=== PATIENT | female | born 1930 | race Caucasian/White ===

== ENCOUNTER 2016-06-07 17:30 | Observation (INO) | payer OTHER ==
--- NOTE | 2016-06-07 17:34 | PDOC ---
History of Present Illness - General History Source: Patient, Family (Daughter, Son ), Old Records Exam Limitations: No Limitations - History of Present Illness Initial Comments: 06/07/16 17:53 The patient is an 85 year old female, with a significant past medical history of hypertension, diabetes, s/p CO (2001) and coronary artery disease s/p CABG ( 2008)/stents, who presents to the emergency department with nonradiating midsternal chest discomfort since approximately 4:30PM this afternoon. The patient describes the chest discomfort as a pressure. The patient reports that she went for a walk outside this afternoon, came inside, sat down and the chest discomfort suddenly started. The patient additionally reports nausea and one episode of nonbloody nonbilious vomiting this afternoon. The patient reports taking two sublingual Nitroglycerins, with some relief. The patient denies shortness of breath. The patient denies fever, chills, headache, cough, diarrhea , abdominal pain, dysuria or any recent illnesses.The patients daughter and son are at the bedside. Allergies: Acetaminophen, Cyclobenzaprine, Midazolam HCl, Penicillins, Statins- Hmg-Coa Reductase Inhibitor, Tramadol HCl. Past Surgical History: Cholecystectomy; CABG; Stents. Social History: Non smoker. Denies alcohol or drug use. PCP: Dr. Arauz Psychologist Clinical: Dr. Metzger <Luba Mueller - Last Filed: 06/07/16 18:22> - General History Source: Patient, Family, Old Records Exam Limitations: No Limitations <Kalli Flores - Last Filed: 06/07/16 19:00> - General Chief Complaint: Chest Pain Stated Complaint: CHEST PAIN/ PRESSURE Time Seen by Provider: 06/07/16 17:33 Past History <Luba Mueller - Last Filed: 06/07/16 18:22> - Past Medical History Cardiac Disorders: Yes (CO,STENTS,CABG,) Diabetes: Yes - Surgical History Cardiac Surgery: Yes (CABG,STENTS) - Psycho/Social/Smoking Cessation Hx Anxiety: No Suicidal Ideation: No Smoking Status: No Smoking History: Never smoked Have you smoked in the past 12 months: No Number of Cigarettes Smoked Daily: 0 Hx Alcohol Use: No Substance Use Type: None Hx Substance Use Treatment: No <Kalli Flores - Last Filed: 06/07/16 19:00> - Past Medical History Allergies/Adverse Reactions: Allergies Allergy/AdvReac Type Severity Reaction Status Date / Time cyclobenzaprine Allergy Unknown Verified 06/07/16 17:33 [Cyclobenzaprine] midazolam HCl [From Versed] Allergy Unknown Verified 06/07/16 17:33 Penicillins Allergy Unknown Verified 06/07/16 17:33 Dclsiwy-Rvy-Vzy Reductase Allergy Unknown Verified 06/07/16 17:33 Inhibitor tramadol HCl [From Ultracet] Allergy Unknown Verified 06/07/16 17:33 Home Medications: Ambulatory Orders Aspirin [ASA -] 81 mg PO DAILY 06/07/16 Clopidogrel Bisulfate [Plavix -] 75 mg PO DAILY 06/07/16 Ezetimibe [Zetia] 10 mg PO DAILY 06/07/16 Isosorbide Mononitrate [Isosorbide Mononitrate ER] 60 mg PO DAILY 06/07/16 Metoprolol Tartrate 100 mg PO BID 06/07/16 Nitroglycerin Sublingual [Nitrostat -] 0.4 mg SL PRN 06/07/16 Wallace-3 Fatty Acids [Fish Oil] 1,000 mg PO DAILY 06/07/16 Pioglitazone HCl [Actos] 45 mg PO DAILY 06/07/16 Review of Systems - Review of Systems Able to Perform ROS?: Yes Comments:: 06/07/16 17:49 GENERAL/CONSTITUTIONAL: No fever or chills. No weakness. HEAD, EYES, EARS, NOSE AND THROAT: No change in vision. No ear pain or discharge. No sore throat. CARDIOVASCULAR: +Chest discomfort. No shortness of breath. RESPIRATORY: No cough, wheezing, or hemoptysis. GASTROINTESTINAL: +Nausea, vomiting. No diarrhea or constipation. GENITOURINARY: No dysuria, frequency, or change in urination. MUSCULOSKELETAL: No joint or muscle swelling or pain. No neck or back pain. SKIN: No rash. NEUROLOGIC: No headache, vertigo, loss of consciousness, or change in strength/ sensation. ENDOCRINE: No increased thirst. No abnormal weight change. HEMATOLOGIC/LYMPHATIC: No anemia, easy bleeding, or history of blood clots. ALLERGIC/IMMUNOLOGIC: No hives or skin allergy. <Luba Mueller - Last Filed: 06/07/16 18:22> *Physical Exam - Physical Exam Comments: 06/07/16 18:00 GENERAL: Awake, alert, and fully oriented, in no acute distress. HEAD: No signs of trauma. EYES: PERRLA, EOMI, sclera anicteric, conjunctiva clear. ENT: Auricles normal inspection, hearing grossly normal, nares patent, oropharynx clear without exudates. Moist mucosa. NECK: Normal ROM, supple, no lymphadenopathy, JVD, or masses. LUNGS: Breath sounds equal, clear to auscultation bilaterally. No wheezes, and no crackles. HEART: Regular rate and rhythm, normal S1 and S2, no murmurs, rubs or gallops. ABDOMEN: Soft, nontender, normoactive bowel sounds. No guarding, no rebound. No masses. EXTREMITIES: Normal range of motion, no edema. No clubbing or cyanosis. No cords, erythema, or tenderness. NEUROLOGICAL: Cranial nerves II through XII intact. Normal speech, normal gait. SKIN: Warm, dry, normal turgor, no rashes or lesions noted. <Luba Mueller - Last Filed: 06/07/16 18:22> ED Treatment Course - LABORATORY CBC & Chemistry Diagram: 06/07/16 17:40 06/07/16 17:40 <Luba Mueller - Last Filed: 06/07/16 18:22> - LABORATORY CBC & Chemistry Diagram: 06/07/16 17:40 06/07/16 17:40 <Kalli Flores - Last Filed: 06/07/16 19:00> Medical Decision Making - Medical Decision Making 06/07/16 18:22 Call placed to patient's PMD, Dr. Arauz - , at 18:21. Connected and case discussed. <Luba Mueller - Last Filed: 06/07/16 18:22> - Medical Decision Making 06/07/16 17:57 85-year-old female with history of hypertension, coronary artery disease, CO, CABG presents the Emergency Department with complaints of chest discomfort associated with nausea and vomiting times one today. Differential diagnosis includes but is not limited to: ACS, pneumonia, pancreatitis, gastritis, electrolyte abnormality, toxic/metabolic derangement. Plan: 1. EKGshows normal sinus rhythm at 70 bpm with an incomplete right bundle branch block and one PVC. These findings are unchanged from prior EKG in 2012 noted in the EMR. 2. Labs 3. Chest x-ray 4. Observe and reevaluate 5. The patient will likely require admission to observation for serial cardiac markers and stress test given her heart score. 06/07/16 18:34 Addendum: The labs were reviewed and are noted in the EMR. The plan is to admit to obs as above. CXR is negative for acute pulmonary disease. I have discussed the case with Dr. Arauz, her primary care physician. <Kalli Flores - Last Filed: 06/07/16 19:00> *DC/Admit/Observation/Transfer - Attestations Scribe Attestion: 06/07/16 17:38 Documentation prepared by Luba Mueller, acting as medical record administrator for Kalli Flores MD. <Luba Mueller - Last Filed: 06/07/16 18:22> - Discharge Dispostion Admit: Yes - Attestations Physician Attestion: 06/07/16 18:00 I, Dr. Kalli Flores, attest that the scribes documentation that appears above has been prepared under my direction and personally reviewed by me in its entirety. I confirmed that the note above accurately reflects all work, treatment, procedures, and medical decision-making performed by me. <Kalli Flores - Last Filed: 06/07/16 19:00> Diagnosis at time of Disposition: Chest pain - Discharge Dispostion Condition at time of disposition: Stable - Referrals Referrals: Guillermo Arauz MD [Primary Care Provider] -
[2016-06-07 18:06] LABS: BASOPHIL 3.3 % (0-2.0); EOSINOPHIL 0.9 % (0-4.5); MCHC 32.6 g/dl (32.0-36.0); MEAN CELL VOLUME 85.9 fl (80-96); MEAN PLT VOLUME 9.2 fl (7.5-11.1); NEUTROPHILS 71.7 % (42.8-82.8); PLATELET COUNT 193 K/MM3 (134-434); RDW 13.9 % (11.6-15.6); WHITE BLOOD COUNT 12.3 K/mm3 (4.0-10.0)
[2016-06-07 18:09] LABS: ALBUMIN 4.3 g/dl (3.5-5.0); BILIRUBIN,TOTAL 0.5 mg/dl (0.2-1.0); CALCIUM 8.9 mg/dl (8.4-10.2); CPK(DFH) 72 IU/L (26-140); CREATININE 1.7 mg/dl (0.6-1.3); PHOSPHOROUS 3.8 mg/dl (2.5-4.6); TOT PROT 7.7 g/dl (6.4-8.3)
[2016-06-07 18:41] LABS: TROPONIN I (DFP) < 0.03 ng/ml (0.03-0.50)
[2016-06-07] MEDS ORDERED: ONDANSETRON 4 MG/2 ML VIAL IVPUSH ONE (18:47)
[2016-06-07] MEDS ORDERED: ONDANSETRON 4 MG/2 ML VIAL ONE (18:48)
--- NOTE | 2016-06-07 19:13 | PDOC ---
*Physical Exam - Vital Signs Last Vital Signs Temp Pulse Resp BP Pulse Ox 98.1 F 65 16 152/77 99 06/07/16 17:32 06/07/16 18:58 06/07/16 18:58 06/07/16 18:58 06/07/16 18:58 ED Treatment Course - LABORATORY CBC & Chemistry Diagram: 06/07/16 17:40 06/07/16 17:40 - ADDITIONAL ORDERS Additional order review: Laboratory Results 06/07/16 06/07/16 17:40 17:40 Sodium 135 L Potassium 4.5 Chloride 101 Carbon Dioxide 26 Anion Gap 8 BUN 28 H Creatinine 1.7 H D Creat Clearance w eGFR 28.50 Random Glucose 130 H D Calcium 8.9 Phosphorus 3.8 Magnesium 2.0 Total Bilirubin 0.5 D AST 31 ALT 13 Alkaline Phosphatase 63 Creatine Kinase 72 Troponin I < 0.03 L Total Protein 7.7 Albumin 4.3 Lipase 40 06/07/16 17:40 RBC 4.89 MCV 85.9 MCHC 32.6 RDW 13.9 MPV 9.2 Neutrophils % 71.7 Lymphocytes % 15.7 D Monocytes % 8.4 Eosinophils % 0.9 Basophils % 3.3 H - Medications Given in the ED: ED Medications Discontinued Medications Generic Name Dose Route Start Last Admin Trade Name Freq PRN Reason Stop Dose Admin Ondansetron HCl 4 mg 06/07/16 18:47 06/07/16 18:50 Zofran Injection IVPUSH 06/07/16 18:48 4 mg ONCE ONE Administration Progress Note - Progress Note Progress Note: Care of this patient received from . Details of the case discussed with CHRIS Morris. Patient will be admitted observation status to telemetry bed here at [facility]. *DC/Admit/Observation/Transfer Diagnosis at time of Disposition: Chest pain - Discharge Dispostion Condition at time of disposition: Stable Admit: Yes - Referrals - Patient Instructions - Post Discharge Activity
[2016-06-07 20:55] VITALS: BMI 26.0
[2016-06-07 20:56] LABS: PH,URINE 5.5 (4.5-8); URINE APPEARANCE Clear; URINE BILIRUBIN Negative (NEGATIVE); URINE GLUCOSE (UA) Negative (NEGATIVE); URINE KETONE Negative (NEGATIVE); URINE LEUK ESTERASE Negative (NEGATIVE); URINE NITRITE Negative (NEGATIVE); URINE PROTEIN Negative (NEGATIVE); URINE UROBILINOGEN 0.2 E.U/dl (0.2-1.0)
[2016-06-07 20:57] LABS: URINE COLOR YELLOW
[2016-06-07 21:31] LABS: URINE BLOOD 1+ (NEGATIVE)
--- NOTE | 2016-06-07 22:49 | HP ---
CHIEF COMPLAINT: Chest Pressure PCP: Dr. Guillermo Arauz HISTORY OF PRESENT ILLNESS: This is a 85 y/o woman with a significant medical history of CAD, s/p Bypass 2009, stents, MS, HTN, NIDDM. Who presents to the ED with midsternal chest pressure non-radiating, nausea x several days worse today. Patient reports increase chest pressure after walking outside, with non-bilious vomiting. Patient denies SOB, diaphoresis. 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 ER course was notable for: (1) Cardiac Enzyme neg x1 (2) EKG- NSR with PVC, RBB (3) WBC 12.3 Recent Travel: None PAST MEDICAL HISTORY: See HPI PAST SURGICAL HISTORY: See HPI Social History: Smoking: Never Alcohol: None Drugs: None Lives with family- retired Family History: Father: Cardiac, PM Mother: Stroke Brother: Valve Replacement Allergies cyclobenzaprine [Cyclobenzaprine] Allergy (Unknown, Verified 06/07/16 17:33) midazolam HCl [From Versed] Allergy (Unknown, Verified 06/07/16 17:33) Penicillins Allergy (Unknown, Verified 06/07/16 17:33) Xwiclnr-Slt-Aow Reductase Inhibitor Allergy (Unknown, Verified 06/07/16 17:33) tramadol HCl [From Ultracet] Allergy (Unknown, Verified 06/07/16 17:33) HOME MEDICATIONS: Home Medications Medication Instructions Recorded Aspirin [ASA -] 81 mg PO DAILY 06/07/16 Clopidogrel Bisulfate [Plavix -] 75 mg PO DAILY 06/07/16 Ezetimibe [Zetia] 10 mg PO DAILY 06/07/16 Isosorbide Mononitrate [Isosorbide 60 mg PO DAILY 06/07/16 Mononitrate ER] Metoprolol Tartrate 100 mg PO BID 06/07/16 Nitroglycerin Sublingual 0.4 mg SL PRN 06/07/16 [Nitrostat -] Marion-3 Fatty Acids [Fish Oil] 1,000 mg PO DAILY 06/07/16 Pioglitazone HCl [Actos] 45 mg PO DAILY 06/07/16 REVIEW OF SYSTEMS CONSTITUTIONAL: Absent: fever, chills, diaphoresis, generalized weakness, malaise, loss of appetite, weight change HEENT: Absent: rhinorrhea, nasal congestion, throat pain, throat swelling, difficulty swallowing, mouth swelling, ear pain, eye pain, visual changes CARDIOVASCULAR: Chest Pressure Absent: syncope, palpitations, irregular heart rate, lightheadedness, peripheral edema RESPIRATORY: Absent: cough, shortness of breath, dyspnea with exertion, orthopnea, wheezing, stridor, hemoptysis GASTROINTESTINAL: nausea, vomiting Absent: abdominal pain, abdominal distension, diarrhea, constipation, melena, hematochezia GENITOURINARY: Absent: dysuria, frequency, urgency, hesitancy, hematuria, flank pain, genital pain MUSCULOSKELETAL: Absent: myalgia, arthralgia, joint swelling, back pain, neck pain SKIN: Absent: rash, itching, pallor HEMATOLOGIC/IMMUNOLOGIC: Absent: easy bleeding, easy bruising, lymphadenopathy, frequent infections ENDOCRINE: Absent: unexplained weight gain, unexplained weight loss, heat intolerance, cold intolerance NEUROLOGIC: Absent: headache, focal weakness or paresthesias, dizziness, unsteady gait, seizure, mental status changes, bladder or bowel incontinence PSYCHIATRIC: Absent: anxiety, depression, suicidal or homicidal ideation, hallucinations. PHYSICAL EXAMINATION Vital Signs - 24 hr 06/07/16 06/07/16 06/07/16 20:00 20:36 20:58 Temperature 98.1 F 97.5 F L Pulse Rate 83 Pulse Rate [ 63 Left Apical] Respiratory 16 17 17 Rate Blood Pressure 166/64 Blood Pressure 122/57 [Right Arm] O2 Sat by Pulse 98 98 Oximetry (%) GENERAL: Awake, alert, and fully oriented, in no acute distress. HEAD: Normal with no signs of trauma. EYES: Pupils equal, round and reactive to light, extraocular movements intact, sclera anicteric, conjunctiva clear. No lid lag. EARS, NOSE, THROAT: Ears normal, nares patent, oropharynx clear without exudates. Moist mucous membranes. NECK: Normal range of motion, supple without lymphadenopathy, JVD, or masses. LUNGS: Breath sounds equal, clear to auscultation bilaterally. No wheezes, and no crackles. No accessory muscle use. HEART: Regular rate and rhythm, normal S1 and S2 without murmur, rub or gallop. CP Non-reproducible upon palpation ABDOMEN: Soft, nontender, not distended, normoactive bowel sounds, no guarding, no rebound, no masses. No hepatomegaly or splenomegaly. MUSCULOSKELETAL: Normal range of motion at all joints. No bony deformities or tenderness. No CVA tenderness. UPPER EXTREMITIES: 2+ pulses, warm, well-perfused. No cyanosis. No clubbing. No peripheral edema. LOWER EXTREMITIES: 2+ pulses, warm, well-perfused. No calf tenderness. No peripheral edema. NEUROLOGICAL: Cranial nerves II-XII intact. Normal speech. Normal gait. PSYCHIATRIC: Cooperative. Good eye contact. Appropriate mood and affect. SKIN: Warm, dry, normal turgor, no rashes or lesions noted, normal capillary refill. Laboratory Results - last 24 hr 06/07/16 06/07/16 06/07/16 17:35 17:40 17:40 WBC 12.3 H D RBC 4.89 Hgb 13.7 D Hct 42.0 MCV 85.9 MCHC 32.6 RDW 13.9 Plt Count 193 D MPV 9.2 Neutrophils % 71.7 Lymphocytes % 15.7 D Monocytes % 8.4 Eosinophils % 0.9 Basophils % 3.3 H Sodium 135 L Potassium 4.5 Chloride 101 Carbon Dioxide 26 Anion Gap 8 BUN 28 H Creatinine 1.7 H D Creat Clearance w eGFR 28.50 POC Glucometer Random Glucose 130 H D Calcium 8.9 Phosphorus 3.8 Magnesium 2.0 Total Bilirubin 0.5 D AST 31 ALT 13 Alkaline Phosphatase 63 Creatine Kinase Troponin I Total Protein 7.7 Albumin 4.3 Lipase 40 Urine Color Yellow Urine Appearance Clear Urine pH 5.5 Ur Specific Buena 1.010 Urine Protein Negative Urine Glucose (UA) Negative Urine Ketones Negative Urine Blood 1+ H Urine Nitrite Negative Urine Bilirubin Negative Urine Urobilinogen 0.2 e.u/dl Ur Leukocyte Esterase Negative 06/07/16 06/07/16 17:40 21:16 WBC RBC Hgb Hct MCV MCHC RDW Plt Count MPV Neutrophils % Lymphocytes % Monocytes % Eosinophils % Basophils % Sodium Potassium Chloride Carbon Dioxide Anion Gap BUN Creatinine Creat Clearance w eGFR POC Glucometer 163 Random Glucose Calcium Phosphorus Magnesium Total Bilirubin AST ALT Alkaline Phosphatase Creatine Kinase 72 Troponin I < 0.03 L Total Protein Albumin Lipase Urine Color Urine Appearance Urine pH Ur Specific Buena Urine Protein Urine Glucose (UA) Urine Ketones Urine Blood Urine Nitrite Urine Bilirubin Urine Urobilinogen Ur Leukocyte Esterase Laboratory Results - last 24 hr 06/07/16 21:16 POC Glucometer 163 ASSESSMENT/PLAN: This is a 85 y/o woman with PMHx of: MS, CAD s/p stents, Bypass, HTN, DM. Placed in Tele Observation Chest Pain r/o MS, JAGRUTI for further evaluation of their emergent condition. Problem List - Problem (1) Chest pain Assessment/Plan: - r/o MS - Continue Tele monitoring - HEART Score 5 - EKG- NSR with PVC, RBBB, no change compared to prior study - Chest Xray- image reviewed, no infiltrate no effusion, sternotomy clips noted , awaiting report - Appreciate Cardiology Consult - Cardiac Enzyme neg x1 - Trend Serial enzymes - Took Asa at home - Continue Asa, Plavix, BB, Statin - Echo in am - Consider Stress Test - Lipid Panel in am - Repeat EKG in am - HgbA1C in am Code(s): R07.9 - CHEST PAIN, UNSPECIFIED (2) Nausea & vomiting Assessment/Plan: - Likely secondary to Gastritis vs ACS - Zofran given in ED - Continue Zofran - Gentle NS bolus - Monitor BMP - Monitor vitals Code(s): R11.2 - NAUSEA WITH VOMITING, UNSPECIFIED (3) JAGRUTI (acute kidney injury) Assessment/Plan: - Cr 1.7 at baseline - NS 250ml bolus - Monitor BMP Code(s): N17.9 - ACUTE KIDNEY FAILURE, UNSPECIFIED (4) HTN (hypertension) Assessment/Plan: - Monitor BP - Continue home meds with parameters - Monitor renal function - Low Na Diet - Code(s): I10 - ESSENTIAL (PRIMARY) HYPERTENSION (5) Diabetes mellitus Assessment/Plan: - Controlled - BGMs - ISS - Will hold home med secondarily to JAGRUTI - HgbA1C - 1800 Ada Diet - Monitor renal function Code(s): E11.9 - TYPE 2 DIABETES MELLITUS WITHOUT COMPLICATIONS (6) DVT prophylaxis Assessment/Plan: - OOB - SCDs - Consider AC if LOS > 48 hrs Code(s): FMB5433 - Visit type - Emergency Visit Emergency Visit: Yes ED Registration Date: 06/07/16 Care time: The patient presented to the Emergency Department on the above date and was hospitalized for further evaluation of their emergent condition. - New Patient This patient is new to me today: Yes Date on this admission: 06/07/16 - Critical Care Critical Care patient: No
[2016-06-08 00:57] LABS: TROPONIN I < 0.02 ng/ml (0.00-0.05)
[2016-06-08] MEDS ORDERED: SODIUM CHLORIDE 250 ML IV STA (01:23)
[2016-06-08] MEDS ORDERED: INSULIN SLIDING SCALE (NOVOLOG) 1 VIAL SQ SCH (07:00)
[2016-06-08 07:43] LABS: BASOPHIL 1.2 % (0-2.0); EOSINOPHIL 1.3 % (0-4.5); MCH 29.1 pg (25.7-33.7); MCHC 34.3 g/dl (32.0-36.0); MEAN PLT VOLUME 8.9 fl (7.5-11.1); NEUTROPHILS 60.5 % (42.8-82.8); PLATELET COUNT 149 K/MM3 (134-434); RDW 13.8 % (11.6-15.6); WHITE BLOOD COUNT 6.3 K/mm3 (4.0-10.0)
[2016-06-08 08:13] LABS: CALCIUM 8.6 mg/dl (8.4-10.2); CREATININE 1.3 mg/dl (0.6-1.3); PHOSPHOROUS 3.2 mg/dl (2.5-4.6)
[2016-06-08 08:16] LABS: CPK(DFH) 98 IU/L (26-140)
[2016-06-08 08:19] LABS: CHOLESTEROL 144 mg/dl
[2016-06-08 08:22] LABS: TROPONIN I (DFP) < 0.03 ng/ml (0.03-0.50)
[2016-06-08] MEDS: ISOSORBIDE MONONITRATE 60 MG TAB.SR.24H (FP) PO SCH (09:24)
[2016-06-08] MEDS: EZETIMIBE 10 MG TABLET (FP) PO SCH (09:24)
[2016-06-08] MEDS: CLOPIDOGREL BISULFATE 75 MG TABLET (FP) PO SCH (09:24)
[2016-06-08] MEDS: METOPROLOL TARTRATE 50 MG TABLET (FP) PO SCH ×2 (09:25→22:23)
[2016-06-08] MEDS: ASPIRIN 81 MG CHEWABLE TABLETS PO SCH (09:25)
--- NOTE | 2016-06-08 11:23 | CONSULT ---
Consult - text type - Consultation Consultation Note: CARDIOLOGY. ASKED BY DR. Colon TO SEE PT. 85 YO FEMALE 06/07/16 VOMITING/CHEST PAIN. PT SEEN, EXAMINED. X RAYS, ECG'S PRIOR RECORDS REVIEWED WORKING DX: GASRITIS/VIRAL ILLNESS. 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 UNDERLYING EXTENSIVE ATHEROSCLEROTIC HEART DISEASE, PRIOR RE-VASCULARIZATION PROCEDURES. REC: DISCONTINUE TELEMETRY. CONTINUE PRESENT TREATMENT. AWAIT OFFICIAL ECHO REPORT. INCREASE ACTIVITY IF REMAINS STABLE ANTICIPATE DISCHARGE 06/09/16 FOR OUT PATIENT NUCLEAR STRESS TEST. DIRECTED CHAD Ramos THANKS. FULL NOTE DICTATED. FAMILY KEPT NFORMED WILL FOLLOW.
[2016-06-08] MEDS: INSULIN SLIDING SCALE (NOVOLOG) 1 VIAL SQ SCH ×3 (11:29→22:58)
--- NOTE | 2016-06-08 13:15 | PN ---
[id number] and throughout nurses station no incidence of dysrhythmias noted on manager monitoring patient denies any dyspnea upon exertion OBJECTIVE: patient is a 85 y/o woman with a significant medical history of CAD , s/p Bypass 2008, cardiac stents, AL, HTN, NIDDM. last exercise stress test was 2011. patient was admitted from the emergency department to telemetry observation for rule out ACS Vital Signs Period Temp Pulse Resp BP Sys/Soto Pulse Ox Last 24 Hr 97.5 F-98.1 F 63-83 16-18 122-166/54-64 98-99 GENERAL: The patient is awake, alert, and fully oriented, in no acute distress. HEAD: Normal with no signs of trauma. EYES: PERRL, extraocular movements intact, sclera anicteric, conjunctiva clear. No ptosis. ENT: Ears normal, nares patent, oropharynx clear without exudates, moist mucous membranes. NECK: Trachea midline, full range of motion, supple. LUNGS: Breath sounds equal, clear to auscultation bilaterally, no wheezes, no crackles, no accessory muscle use. HEART: Regular rate and rhythm, S1, S2, 2/6 systolic murmur, rub or gallop. ABDOMEN: Soft, nontender, nondistended, normoactive bowel sounds, no guarding, no rebound, no hepatosplenomegaly, no masses. EXTREMITIES: 2+ pulses, warm, well-perfused, no edema. NEUROLOGICAL: Cranial nerves II through XII grossly intact. Normal speech, gait not observed. PSYCH: Normal mood, normal affect. SKIN: Warm, dry, normal turgor, no rashes or lesions noted Laboratory Results - last 24 hr 06/07/16 06/07/16 06/08/16 21:16 23:30 06:22 WBC RBC Hgb Hct MCV MCHC RDW Plt Count MPV Neutrophils % Lymphocytes % Monocytes % Eosinophils % Basophils % Sodium Potassium Chloride Carbon Dioxide Anion Gap BUN Creatinine POC Glucometer 163 94 Random Glucose Calcium Phosphorus Magnesium Creatine Kinase 76 Troponin I < 0.02 Triglycerides Cholesterol Total LDL Cholesterol HDL Cholesterol 06/08/16 06/08/16 06/08/16 07:00 07:00 07:00 WBC 6.3 D RBC 4.27 Hgb 12.4 Hct 36.3 MCV 85.0 MCHC 34.3 RDW 13.8 Plt Count 149 D MPV 8.9 Neutrophils % 60.5 Lymphocytes % 29.6 D Monocytes % 7.4 Eosinophils % 1.3 Basophils % 1.2 Sodium 138 Potassium 4.1 Chloride 107 Carbon Dioxide 25 Anion Gap 6 L BUN 24 H Creatinine 1.3 D POC Glucometer Random Glucose 103 D Calcium 8.6 Phosphorus 3.2 Magnesium 2.0 Creatine Kinase Troponin I Triglycerides 67 Cholesterol 144 Total LDL Cholesterol 87 HDL Cholesterol 44 06/08/16 06/08/16 07:00 11:24 WBC RBC Hgb Hct MCV MCHC RDW Plt Count MPV Neutrophils % Lymphocytes % Monocytes % Eosinophils % Basophils % Sodium Potassium Chloride Carbon Dioxide Anion Gap BUN Creatinine POC Glucometer 129 Random Glucose Calcium Phosphorus Magnesium Creatine Kinase 98 Troponin I < 0.03 L Triglycerides Cholesterol Total LDL Cholesterol HDL Cholesterol Active Medications Generic Name Dose Route Start Last Admin Trade Name Jaimeq PRN Reason Stop Dose Admin Aspirin 81 mg 06/08/16 10:00 06/08/16 09:25 Asa - PO 81 mg DAILY ITZ Administration Clopidogrel Bisulfate 75 mg 06/08/16 10:00 06/08/16 09:24 Plavix - PO 75 mg DAILY ITZ Administration Ezetimibe 10 mg 06/08/16 10:00 06/08/16 09:24 Zetia - PO 10 mg DAILY ITZ Administration Insulin Aspart 1 vial 06/08/16 07:56 06/08/16 11:29 Novolog Vial Sliding Scale - SQ Not Given ACHS [facility] Protocol Isosorbide Mononitrate 60 mg 06/08/16 10:00 06/08/16 09:24 Imdur - PO 60 mg DAILY ITZ Administration Metoprolol Tartrate 100 mg 06/08/16 10:00 06/08/16 09:25 Lopressor - PO 100 mg BID ITZ Administration ASSESSMENT/PLAN: 1) card Chest pain rule out ACS - Denies any further incidents of chest discomfort, no events on cardiac monitoring - Repeat EKG normal sinus rhythm with PACs, RBBB unchanged from prior EKG yesterday - troponin 3 WNL - Continue daily aspirin and Plavix- significant history of coronary artery disease - pending echo - case discussed with Dr. Almaraz, will defer stress tests, advised observation overnight in hospital with frequent ambulation if patient becomes symptomatic stress test to be done in a.m. Hypertension - continue Lopressor and Imdur 2) neph acute on chronic renal failure - repeat creatinine this a.m. 1.3 dose to baseline - JAGRUTI likely secondary to dehydration, creatinine improved after IV hydration 3) Endo nIDDM - Fingersticks before meals and at bedtime - continue to hold Actos secondary to JAGRUTI F/E/N - diabetic cardiac diet - replete electrolytes when necessary PPX - OOB - SCD dispo: requires Observation telemetry Visit type - Emergency Visit Emergency Visit: Yes ED Registration Date: 06/07/16 Care time: The patient presented to the Emergency Department on the above date and was hospitalized for further evaluation of their emergent condition. - New Patient This patient is new to me today: Yes Date on this admission: 06/08/16 - Critical Care Critical Care patient: No - Discharge Referral Referred to [facility] No
[2016-06-08] MEDS: RANITIDINE HCL 150 MG TABLET (FP) PO SCH (14:00)
--- NOTE | 2016-06-08 23:35 | EKG ---
Test Reason : Blood Pressure : / mmHG Vent. Rate : 069 BPM Atrial Rate : 069 BPM P-R Int : 196 ms QRS Dur : 112 ms QT Int : 410 ms P-R-T Axes : 062 -16 040 degrees QTc Int : 439 ms SINUS RHYTHM WITH PREMATURE ATRIAL COMPLEXES INCOMPLETE RIGHT BUNDLE BRANCH BLOCK BORDERLINE ECG WHEN COMPARED WITH ECG OF 07-JUN-2016 17:43, PREMATURE VENTRICULAR COMPLEXES ARE NO LONGER PRESENT Confirmed by LAUREL MARTIN, MONICA ([id number]) on 06/08/2016 11:35:25 PM Referred By: Confirmed By:MONICA BARRAGAN MD
--- NOTE | 2016-06-08 23:36 | EKG ---
Test Reason : Blood Pressure : / mmHG Vent. Rate : 070 BPM Atrial Rate : 070 BPM P-R Int : 172 ms QRS Dur : 108 ms QT Int : 414 ms P-R-T Axes : 097 -09 051 degrees QTc Int : 447 ms SINUS RHYTHM WITH OCCASIONAL PREMATURE VENTRICULAR COMPLEXES AND PREMATURE ATRIAL COMPLEXES INCOMPLETE RIGHT BUNDLE BRANCH BLOCK BORDERLINE ECG NO PREVIOUS ECGS AVAILABLE Confirmed by MONICA BARRAGAN MD ([id number]) on 06/08/2016 11:35:46 PM Referred By: DR NIETO Confirmed By:MONICA BARRAGAN MD
[2016-06-09 05:32] VITALS: BP 123/53; PULSE 64; TEMP 98.7
--- NOTE | 2016-06-09 09:10 | DS ---
Physical Exam: SUBJECTIVE: Patient seen and examined OBJECTIVE: Vital Signs Period Temp Pulse Resp BP Sys/Soto Pulse Ox Last 24 Hr 97.5 F-98.7 F 58-78 16-20 123-133/48-66 97-100 PHYSICAL EXAM GENERAL: The patient is awake, alert, and fully oriented, in no acute distress. HEAD: Normal with no signs of trauma. EYES: PERRL, extraocular movements intact, sclera anicteric, conjunctiva clear. ENT: Ears normal, nares patent, oropharynx clear without exudates, moist mucous membranes. NECK: Trachea midline, full range of motion, supple. LUNGS: Breath sounds equal, clear to auscultation bilaterally, no wheezes, no crackles, no accessory muscle use. HEART: Regular rate and rhythm, S1, S2 without murmur, rub or gallop. ABDOMEN: Soft, nontender, nondistended, normoactive bowel sounds, no guarding, no rebound, no hepatosplenomegaly, no masses. EXTREMITIES: 2+ pulses, warm, well-perfused, no edema. NEUROLOGICAL: Cranial nerves II through XII grossly intact. Normal speech, gait not observed. PSYCH: Normal mood, normal affect. SKIN: Warm, dry, normal turgor, no rashes or lesions noted. LABS Laboratory Results - last 24 hr 06/08/16 06/08/16 06/08/16 07:00 11:24 17:13 POC Glucometer 129 113 Hemoglobin A1c % 6.3 H 06/08/16 22:50 POC Glucometer 136 Hemoglobin A1c % HOSPITAL COURSE: Date of Admission:06/07/16 Date of Discharge: 06/09/16 Discharge Summary Reason For Visit: CHEST PAIN Current Active Problems JAGRUTI (acute kidney injury) (Acute) Chest pain (Acute) DVT prophylaxis (Acute) Diabetes mellitus (Acute) HTN (hypertension) (Acute) Nausea & vomiting (Acute) Condition: Stable - Instructions Referrals: Guillermo Arauz MD [Primary Care Provider] - - Home Medications Comprehensive Discharge Medication List: Ambulatory Orders Aspirin [ASA -] 81 mg PO DAILY 06/07/16 Clopidogrel Bisulfate [Plavix -] 75 mg PO DAILY 06/07/16 Ezetimibe [Zetia] 10 mg PO DAILY 06/07/16 Isosorbide Mononitrate [Isosorbide Mononitrate ER] 60 mg PO DAILY 06/07/16 Nitroglycerin Sublingual [Nitrostat -] 0.4 mg SL PRN 06/07/16 [place]-3 Fatty Acids [Fish Oil] 1,000 mg PO DAILY 06/07/16 Pioglitazone HCl [Actos] 45 mg PO DAILY 06/07/16 RX: Metoprolol Tartrate 100 mg PO BID 06/07/16 - Discharge Referral Referred to [facility] No
[2016-06-09] MEDS: METOPROLOL TARTRATE 50 MG TABLET (FP) PO SCH (09:21)
[2016-06-09] MEDS: ISOSORBIDE MONONITRATE 60 MG TAB.SR.24H (FP) PO SCH (09:21)
[2016-06-09] MEDS: RANITIDINE HCL 150 MG TABLET (FP) PO SCH (09:22)
[2016-06-09] MEDS: CLOPIDOGREL BISULFATE 75 MG TABLET (FP) PO SCH (09:22)
[2016-06-09] MEDS: EZETIMIBE 10 MG TABLET (FP) PO SCH (09:22)
[2016-06-09] MEDS: ASPIRIN 81 MG CHEWABLE TABLETS PO SCH (09:23)
--- NOTE | 2016-06-09 11:35 | CONS ---
DATE OF CONSULTATION: 06/08/2016 REQUESTING PHYSICIAN: Bri Baeza MD LOCATION: Second floor, [facility]. PATIENT PROFILE: The patient is an 85-year-old female admitted on June 07, 2016, because of nausea, vomiting, and chest pain. The patient has known atherosclerotic heart disease. She had an anterior wall myocardial infarction in 2001. Subsequent to that time, she has had multiple angioplasty procedures and had undergone coronary artery bypass graft surgery for multi-vessel disease in June,. Subsequent to that time, she again required for a first diagonal stenosis in Jul, 2009. The most recent nuclear stress study in November,, showed excellent exercise tolerance and small area of basal lateral wall ischemia. The left ventricular ejection fraction was 65%. She is admitted now with about 2 days of feeling vague chest discomfort, and on the day of admission, she felt nauseous and vomited, and subsequently had chest discomfort. She never had jaw pain. She presently feels well and has no symptoms, and in particular, denies shortness of breath, diaphoresis, or syncope. MEDICATIONS: The present medications include Plavix 75 mg per day, aspirin 81 mg per day, Imdur 60 mg per day, Zetia 10 mg per day, and metoprolol 100 mg b.i.d. PRIOR MEDICAL HISTORY: Atherosclerotic heart disease as discussed above, valvular heart disease. On Jul, 2011 echocardiogram, mild to moderate tricuspid insufficiency, mild to moderate mitral insufficiency, normal left ventricular systolic function, mild pulmonary hypertension, renal insufficiency. On Jul, 2014, BUN 32, creatinine 1.6, left wrist fracture. On May,, thyroid nodule, benign. PRIOR SURGICAL HISTORY: Coronary artery bypass graft surgery 2008, COLUNGA-LAD, SVG-OM2, SVG-PDA, cataract extraction. FAMILY HISTORY: Her mother of complications of a stroke and hypertension. A brother of diabetes and heart disease. A sister has diabetes. SOCIAL HISTORY: She lives alone and manages her own affairs. There is no history of smoking or alcohol abuse. REVIEW OF SYSTEMS: General: No fever or chills. Gastrointestinal: No melena. No hematemesis. Pulmonary: No hemoptysis. Cardiac: No edema, no orthopnea. Neurological: No focal deficit. PHYSICAL EXAMINATION: General: The patient appears significantly younger than his stated age, awake and alert, lying flat. Vital signs: The temperature afebrile, the pulse is 60 and occasional extrasystoles are noted, the blood pressure is 128/60, respiratory rate 18 per minute, the weight is 147 pounds, oxygen saturation is 99% on ambient air. Neck: There is no neck vein distension. There is no carotid bruit. Lungs: The lung [place] are clear. Heart: The heart sounds are normal. Occasional extrasystoles are noted. There is a 1/6 systolic murmur at the left sternal border best heard with breath holding. No diastolic sounds are appreciated. There is no peripheral edema. Neurologic: There is no focal neurological deficit. DATA BASE: The electrocardiogram demonstrates sinus rhythm, atrial premature depolarizations are noted, intraventricular conduction delay of a right bundle branch block type. A August,, echocardiogram was reviewed demonstrating mild to moderate mitral insufficiency and mild tricuspid insufficiency. The left ventricular ejection fraction is 70%. A present echocardiographic study is pending at the time of this dictation. The chest x-ray was reviewed. The heart size cannot be accurately assessed due to the technique of the film. However, there is no infiltrate, effusion, or pulmonary venous congestion. The clips from the prior open heart surgery are noted. LABORATORY STUDIES OF NOTE: Includes normal electrolytes, the BUN 24, the creatinine 1.3. Troponin level is 0.02 to 0.03. The CPK is 98. The triglyceride 67, cholesterol 144, LDL 87, and HDL 44. The white blood cell count is 6.3, hematocrit 36%, platelet count is 149,000. Urinalysis is negative for protein and glucose. IMPRESSION: The working diagnosis is a viral gastritis. The history is consistent with this diagnosis. There are no electrocardiographic findings of ischemia, and troponin levels are normal. The differential diagnosis would include myocardial ischemia without infarction. The patient has had multiple revascularization procedures and has as such underlying extensive atherosclerotic disease. However, the electrocardiogram shows no acute changes, and biochemical markers for myocardial necrosis are negative. RECOMMENDATIONS: I recommended the followin. Discontinue telemetry. 2. Continue the present medical regimen. 3. Will review echocardiogram when available. 4. Increase activity. 5. If remains stable, anticipate hospital discharge June 09, 2016, for outpatient noninvasive reevaluation to include a stress nuclear study. 6. Workup and therapy as directed by Dr. Baeza. The patient and family were kept informed with regard to the diagnosis, prognosis, and options. All questions were answered. DORA ENCARNACION M.D. ESTRELLA/[id number] cc: MD Bri Linares MD Dorian Tergis, MD
== END 2016-06-09 09:50 | disposition home or self-care (01) ==
LOC: FER 17:30 → SUPCPDRO 17:30 → FM/S 19:32
PROVIDERS: ADMIT Family Medicine; ATTEND Nurse Practitioner Family
PROC: 3E033GC Introduction of Other Therapeutic Substance into Peripheral Vein, Percutaneous Approach (ICD-10-PCS; principal; 2016-06-07)
DX: R07.9 Chest pain, unspecified (principal); N17.9 Acute kidney failure, unspecified; I25.10 Atherosclerotic heart disease of native coronary artery without angina pectoris; I25.2 Old myocardial infarction; I10 Essential (primary) hypertension; E11.9 Type 2 diabetes mellitus without complications; E86.0 Dehydration; Z95.1 Presence of aortocoronary bypass graft; Z95.5 Presence of coronary angioplasty implant and graft; Z79.01 Long term (current) use of anticoagulants
CPT/HCPCS: 36415; 71010-TC; 80048; 80053; 80061; 81003; 82550; 83036; 83690; 83735; 84100; 84484; 85025; 93005; 93306-TC; 99285-25; G0378

== ENCOUNTER 2017-09-09 01:13 | Emergency (ER) | payer OTHER ==
[2017-09-09 01:20] VITALS: PULSE 80; TEMP 97.9; BMI 26.0
[2017-09-09] MEDS ORDERED: cloNIDine HCL 0.1 MG TABLET ONE (01:39)
[2017-09-09] MEDS ORDERED: cloNIDine HCL 0.1 MG TABLET PO ONE (01:40)
--- NOTE | 2017-09-09 01:40 | PDOC ---
History of Present Illness - General Chief Complaint: Blood Pressure Problem Stated Complaint: HTN Time Seen by Provider: 09/09/17 01:34 History Source: Patient - History of Present Illness Initial Comments: 09/09/17 01:39 This is a 87-year-old female who comes in complaining of high blood pressure. Patient was recently diagnosed with high blood pressure and was started on a medication however patient stopped it because she was ALLERGIC to it. Patient has not started on any other medication. Patient otherwise denies any complete other than the hypertension. Patient woke up felt weak took her blood pressure was high so she came in for evaluation. Patient denies any chest pain, nausea, shortness of breath or any other complaints. PAST MEDICAL HISTORY: no significant history PAST SURGICAL HISTORY: no significant history FAMILY HISTORY: no pertinant history SOCIAL HISTORY: Pt lives with family and is employed. MEDICATIONS: reviewed ALLERGIES: As per nursing notes Review of Systems General: No fevers or chills, no weakness, no weight loss HEENT: No change in vision. No sore throat,. No ear pain CardioVascular: No chest pain or shortness of breath Respiratory:No cough, or wheezing. Gastrointestinal: no nausea, vomitting, diarrhea or constipation, No rectal bleeding Genitourinary: No dysuria, hematuria, or frequency Musculoskeletal: No joint or muscle pain or swelling Neurologic: No headache, vertigo, dizziness or loss of consciousness Psychiatric: nor depression Skin: No rashes or easy bruising Endocrine: no increased thirst or abnormal weight change Allergic: no skin or latex allergy All other systems reviewed and normal Exam: General: Well-nourished well-developed individual, no acute distress HEENT: Throat: Normal, tonsils normal, no erythema or exudate Neck: Supple, no meningeal signs, no lymphadenopathy Eyes::Pupils equal reactive and round, extraocular motion intact Chest: Nontender to palpation Cardiac: S1-S2 normal, regular rate and rhythm, no murmurs rubs or gallops Respiratory: Lungs clear to auscultation bilateral Abdomen: Soft, nondistended, normal bowel sounds, nontender to palpation diffusely Extremities: Warm, dry, no cyanosis, clubbing, or edema Skin: No rashes Neuro: Alert and oriented x3, CN II - XII intact, nonfocal exam with normal strength, normal sensation, normal reflexes, normal gait, Psych: Normal mood and affect Assessment and plan: This is an 87-year-old female who comes in complaining of hypertension elevated blood pressure. Patient's blood pressure was elevated on arrival. She was given clonidine 0.2 mg with repeat blood pressure 155 systolic. Patient had otherwise no complaints. Patient was instructed to call her doctor in the morning and get started on some medication for blood pressure elevation 09/09/17 07:00 Past History - Past Medical History Allergies/Adverse Reactions: Allergies Allergy/AdvReac Type Severity Reaction Status Date / Time cyclobenzaprine Allergy Unknown Verified 06/07/16 17:33 [Cyclobenzaprine] midazolam HCl [From Versed] Allergy Unknown Verified 06/07/16 17:33 Penicillins Allergy Unknown Verified 06/07/16 17:33 Xprsqfh-Zmx-[id number] Reductase Allergy Unknown Verified 06/07/16 17:33 Inhibitor tramadol HCl [From Ultracet] Allergy Unknown Verified 06/07/16 17:33 Home Medications: Ambulatory Orders Aspirin [ASA -] 81 mg PO DAILY 06/07/16 Clopidogrel Bisulfate [Plavix -] 75 mg PO DAILY 06/07/16 Ezetimibe [Zetia] 10 mg PO DAILY 06/07/16 Isosorbide Mononitrate [Isosorbide Mononitrate ER] 60 mg PO DAILY 06/07/16 Metoprolol Tartrate 100 mg PO BID 06/07/16 Nitroglycerin Sublingual [Nitrostat -] 0.4 mg SL PRN 06/07/16 [place]-3 Fatty Acids [Fish Oil] 1,000 mg PO DAILY 06/07/16 Pioglitazone HCl [Actos] 45 mg PO DAILY 06/07/16 Ranitidine [Zantac -] 150 mg PO DAILY tablet 06/09/16 Anemia: No Asthma: No Cancer: No Cardiac Disorders: Yes (CA,STENTS,CABG,) CVA: No COPD: No CHF: No Dementia: No Diabetes: Yes GI Disorders: No Disorders: No HTN: Yes Hypercholesterolemia: Yes Liver Disease: No Seizures: No Thyroid Disease: No - Surgical History Cardiac Surgery: Yes (CABG,STENTS) Cholecystectomy: Yes - Suicide/Smoking/Psychosocial Hx Smoking Status: No Smoking History: Never smoked Have you smoked in the past 12 months: No Number of Cigarettes Smoked Daily: 0 Hx Alcohol Use: No Drug/Substance Use Hx: No Substance Use Type: None Hx Substance Use Treatment: No *Physical Exam - Vital Signs Last Vital Signs Temp Pulse Resp BP Pulse Ox 97.9 F 80 18 179/59 97 09/09/17 01:14 09/09/17 01:14 09/09/17 01:14 09/09/17 01:34 09/09/17 01:14 *DC/Admit/Observation/Transfer Diagnosis at time of Disposition: Essential hypertension - Discharge Dispostion Disposition: HOME Condition at time of disposition: Stable Decision to Admit order: No - Referrals Referrals: Veena Mckenna MD [Primary Care Provider] - - Patient Instructions Printed Discharge Instructions: DI for High Blood Pressure Additional Instructions: It is very poor and that you call your healthcare consultant today that the no urine the emergency room because her pressure was high and get started on some medication for your blood pressure. Return to the emergency department immediately with ANY new, persistent or worsening symptoms. Continue any medications as previously prescribed by your physician. You should follow up with your primary doctor as soon as possible regarding today's emergency department visit. . Please make sure your doctor reviews the results of your emergency evaluation. Thank you for coming to the Emergency Department today for your care. It was a pleasure to see you today. Please note that your evaluation is INCOMPLETE until you follow-up with your doctor. - Post Discharge Activity
[2017-09-09 02:20] VITALS: BP 153/43
== END 2017-09-09 02:30 | disposition home or self-care (01) ==
LOC: FER 01:13
DX: I10 Essential (primary) hypertension (principal); I25.2 Old myocardial infarction; Z95.5 Presence of coronary angioplasty implant and graft; E78.00 Pure hypercholesterolemia, unspecified
CPT/HCPCS: 99281-25; J0735

== ENCOUNTER 2018-12-31 20:20 | Emergency (ER) | payer OTHER ==
[2018-12-31 20:33] VITALS: BP 186/82; PULSE 74; TEMP 98.5; BMI 32.3
[2018-12-31] MEDS ORDERED: SODIUM CHLORIDE 1,000 ML IV ONE (20:34)
[2018-12-31] MEDS ORDERED: ONDANSETRON 4 MG/2 ML VIAL IVPB ONE (20:34)
[2018-12-31] MEDS ORDERED: ONDANSETRON 4 MG/2 ML VIAL ONE (20:43)
--- NOTE | 2018-12-31 20:57 | PDOC ---
Documentation entered by Virgilio Gamez SCRIBE, acting as scribe for Rae Parmar MD. Rae Parmar MD: This documentation has been prepared by the Vera osullivan Nirvannie, SCRIBE, under my direction and personally reviewed by me in its entirety. I confirm that the documentation accurately reflects all work, treatment, procedures, and medical decision making performed by me. History of Present Illness - General Chief Complaint: Nausea/Vomiting Stated Complaint: NAUSEA,VOMITING,DIARRHEA X 2 HOURS Time Seen by Provider: 12/31/18 20:30 History Source: Patient Exam Limitations: No Limitations - History of Present Illness Initial Comments: 12/31/18 20:40 HPI: The patient is a 88 year old female, with a significant past medical history of CAD (s/p CA, CABG, and cardiac stenting), HTN, who presents to the emergency department with, 2 hours of epigastric abdominal pain, nausea with nonbloody, nonbilious emesis, and generalized abdominal pain. As per patient, at approximately 5:30pm, shortly after eating, her systems began. She denies anyone in her household being sick with similar symptoms. She denies any recent travel or antibiotic usage. She denies recent fevers, chills, headache or dizziness. She denies recent dysuria, frequency, urgency or hematuria. She denies recent chest pain or shortness of breath. PAST MEDICAL HISTORY: no significant history PAST SURGICAL HISTORY: no significant history FAMILY HISTORY: no pertinent history SOCIAL HISTORY: Pt lives with family and is retired. MEDICATIONS: reviewed ALLERGIES: As per nursing notes ROS: General: No fevers or chills, no weakness, no weight loss HEENT: No change in vision. No sore throat,. No ear pain CardioVascular: No chest pain or shortness of breath Respiratory:No cough, or wheezing. Gastrointestinal: +Nausea. +Vomiting. +diarrhea, +Abdominal pain. No rectal bleeding Genitourinary: No dysuria, hematuria, or frequency Musculoskeletal: No joint or muscle pain or swelling Neurologic: No headache, vertigo, dizziness or loss of consciousness Psychiatric: nor depression Skin: No rashes or easy bruising Endocrine: no increased thirst or abnormal weight change Allergic: no skin or latex allergy All other systems reviewed and normal Physical Exam: General: Well-nourished well-developed individual, no acute distress HEENT: Throat:+Dry mucous membranes. tonsils normal, no erythema or exudate Neck: Supple, no meningeal signs, no lymphadenopathy Eyes::Pupils equal reactive and round, extraocular motion intact Chest: Nontender to palpation Cardiac: S1-S2 normal, regular rate and rhythm, no murmurs rubs or gallops Respiratory: Lungs clear to auscultation bilateral Abdomen: +mild Epigastric abdominal pain with deep palpation. No guarding or rebound. Soft, nondistended, normal bowel sounds. Extremities: Warm, dry, no cyanosis, clubbing, or edema Skin: No rashes Neuro: Alert and oriented x3, nonfocal exam, grossly intact, normal gait Psych: Normal mood and affect Assessment and plan: This is an 88-year-old female comes in complaining of approximately 2 to 3 hours of nausea vomiting and diarrhea. Patient said she had acute onset about 530 this evening. Patient said episodes are preceded by some abdominal cramps otherwise she says there is some mild upper abdominal discomfort. Patient denies any chest pain or shortness of breath. Work-up initiated including CBC, comp, EKG, cardiac enzymes EKG shows normal sinus rhythm at a rate of 80 and incomplete right bundle branch block and some flipped T waves V1 V2 and V3. In comparison with old EKG from November of this year there is no significant change. Past History - Past Medical History Allergies/Adverse Reactions: Allergies Allergy/AdvReac Type Severity Reaction Status Date / Time cyclobenzaprine Allergy Unknown Verified 06/07/16 17:33 [Cyclobenzaprine] midazolam HCl [From Versed] Allergy Unknown Verified 06/07/16 17:33 Penicillins Allergy Unknown Verified 06/07/16 17:33 Gsvkjnz-Fxz-Kfr Reductase Allergy Unknown Verified 06/07/16 17:33 Inhibitor tramadol HCl [From Ultracet] Allergy Unknown Verified 06/07/16 17:33 amlodipine Allergy Verified 12/31/18 20:22 Home Medications: Ambulatory Orders Aspirin [ASA -] 81 mg PO DAILY 06/07/16 Clopidogrel Bisulfate [Plavix -] 75 mg PO DAILY 06/07/16 Ezetimibe [Zetia] 10 mg PO DAILY 06/07/16 Isosorbide Mononitrate [Isosorbide Mononitrate ER] 60 mg PO DAILY 06/07/16 Metoprolol Tartrate 100 mg PO BID 06/07/16 Nitroglycerin Sublingual [Nitrostat -] 0.4 mg SL PRN 06/07/16 [place]-3 Fatty Acids [Fish Oil] 1,000 mg PO DAILY 06/07/16 Pioglitazone HCl [Actos] 45 mg PO DAILY 06/07/16 Nitrofurantoin Monohyd/M-Cryst [Macrobid -] 100 mg PO BID #14 capsule 12/31/18 Ondansetron [Zofran *Odt*] 4 mg SL TID PRN #12 od.tablet 12/31/18 Anemia: No Asthma: No Cancer: No Cardiac Disorders: Yes (CA,STENTS,CABG,) CVA: No COPD: No CHF: No Dementia: No Diabetes: Yes GI Disorders: No Disorders: No HTN: Yes Hypercholesterolemia: Yes Liver Disease: No Seizures: No Thyroid Disease: No - Surgical History Cardiac Surgery: Yes (CABG,STENTS) Cholecystectomy: Yes - Psycho Social/Smoking Cessation Hx Smoking Status: No Smoking History: Never smoked Have you smoked in the past 12 months: No Number of Cigarettes Smoked Daily: 0 Information on smoking cessation initiated: No Hx Alcohol Use: No Drug/Substance Use Hx: No Substance Use Type: None Hx Substance Use Treatment: No *Physical Exam - Vital Signs Last Vital Signs Temp Pulse Resp BP Pulse Ox 98.5 F 74 16 186/82 H 96 12/31/18 20:29 12/31/18 20:29 12/31/18 20:29 12/31/18 20:29 12/31/18 20:29 ED Treatment Course - LABORATORY CBC & Chemistry Diagram: 12/31/18 20:43 12/31/18 21:38 Discharge - Discharge Information Problems reviewed: Yes Clinical Impression/Diagnosis: Cystitis, Nausea & vomiting Condition: Stable Disposition: HOME - Admission No - Additional Discharge Information Prescriptions: Nitrofurantoin Monohyd/M-Cryst [Macrobid -] 100 mg PO BID #14 capsule - Follow up/Referral - Patient Discharge Instructions Additional Instructions: Take Macrobid 1 tablet twice a day. Again this is for the urinary tract infection. I have sent a prescription to your pharmacy. For nausea you can take Zofran 1 tablet as often as every 6-8 hours if needed. Return to the emergency department immediately with ANY new, persistent or worsening symptoms. Continue any medications as previously prescribed by your physician. You should follow up with your primary doctor as soon as possible regarding today's emergency department visit. . Please make sure your doctor reviews the results of your emergency evaluation. Thank you for coming to the Emergency Department today for your care. It was a pleasure to see you today. Please note that your evaluation is INCOMPLETE until you follow-up with your doctor. - Post Discharge Activity
[2018-12-31 21:22] LABS: BASO % 0.2 % (0-2.0); EOS % 1.6 % (0-4.5); HEMATOCRIT 43.3 % (32.4-45.2); LYMPH % 11.4 % (8-40); MCHC 32.4 g/dl (32.0-36.0); MEAN CELL VOLUME 89.3 fl (80-96); MEAN PLT VOLUME 9.7 fl (7.5-11.1); MONO % 7.5 % (3.8-10.2); NEUT % 79.3 % (42.8-82.8); PLATELET COUNT 169 K/MM3 (134-434); RBC 4.84 M/mm3 (3.60-5.2); WHITE BLOOD COUNT 9.9 K/mm3 (4.0-10.8)
[2018-12-31 21:49] LABS: ALBUMIN 4.3 g/dl (3.4-5.0); BILIRUBIN,TOTAL 0.5 mg/dl (0.2-1); CALCIUM 9.2 mg/dl (8.5-10); CREATININE 1.4 mg/dl (0.55-1.3); POTASSIUM 4.4 mmol/L (3.5-5.1); TOT PROT 7.9 g/dl (6.4-8.2)
[2018-12-31 22:05] LABS: AMORP URATES 1+ /hpf (NONE SEEN); EPITHELIAL CELLS FEW /hpf
[2018-12-31] MEDS ORDERED: NITROFURANTOIN MACROCRYSTAL 50 MG CAPSULE (FP) PO SCH (22:30)
[2018-12-31] MEDS ORDERED: NITROFURANTOIN MACROCRYSTAL 50 MG CAPSULE (FP) ONE (22:32)
--- NOTE | 2019-01-01 15:53 | EKG ---
Test Reason : Blood Pressure : / mmHG Vent. Rate : 080 BPM Atrial Rate : 080 BPM P-R Int : 200 ms QRS Dur : 114 ms QT Int : 396 ms P-R-T Axes : 027 -11 014 degrees QTc Int : 456 ms SINUS RHYTHM WITH OCCASIONAL PREMATURE VENTRICULAR COMPLEXES INCOMPLETE RIGHT BUNDLE BRANCH BLOCK ABNORMAL ECG WHEN COMPARED WITH ECG OF 08-JUN-2016 10:31, PREMATURE VENTRICULAR COMPLEXES ARE NOW PRESENT PREMATURE ATRIAL COMPLEXES ARE NO LONGER PRESENT Confirmed by LAUREL MARTIN, MONICA ([id number]) on 01/01/2019 3:52:44 PM Referred By: ROSALIE TAM Confirmed By:MONICA BARRAGAN MD
== END 2018-12-31 22:53 | disposition home or self-care (01) ==
LOC: FER 20:20
PROC: 3E033GC Introduction of Other Therapeutic Substance into Peripheral Vein, Percutaneous Approach (ICD-10-PCS; principal; 2018-12-31)
DX: N30.90 Cystitis, unspecified without hematuria (principal); R11.2 Nausea with vomiting, unspecified; Z88.0 Allergy status to penicillin; Z88.8 Allergy status to other drugs, medicaments and biological substances; E78.00 Pure hypercholesterolemia, unspecified; Z95.1 Presence of aortocoronary bypass graft
CPT/HCPCS: 36415; 80053; 81003; 81015; 82550; 83690; 84484; 85025; 87086; 87186; 93005; 99282-25; J7030